=== PATIENT | female | born 1950 | race Caucasian/White ===

== ENCOUNTER 2020-03-30 14:08 | Outpatient (CLI) | payer MEDICARE, SELFPAY ==
--- NOTE | ~2020-03-30 | US_ITS ---
EXAMINATION: US art doppler w press LE BI DATE: 03/30/2020 15:09 INDICATION: Peripheral vascular disease TECHNIQUE: Segmental pressures and plethysmographic and Doppler waveforms of the brachial and lower e xtremity arteries were obtained. COMPARISON: None. FINDINGS: Right and left brachial artery pressures of 152 mm Hg and 146 mm Hg, respectively, are concordant (no rmal difference <= 30 mmHg). The right and left high-thigh pressure indices were unable to be obtaine d due to inability to occlude the vessels (normal > 1.2). The right ankle-brachial index (AYAKA) is 0.84 (normal >= 0.9-1). The right great toe-brachial index (T BI) is 0.55 (normal >= 0.6-0.8). The right lower extremity segmental pressure gradients are increased between the right above and xcchd-gfs-bjik popliteal artery and between the sykkg-xsh-syjf popliteal artery and the right dorsalis pedis artery (normal gradients <= 20-30 mmHg between adjacent levels o n the same leg or the same levels on the two legs). Arterial waveforms are biphasic with brisk systol ic upstrokes throughout. The left AYAKA is 0.82. The left TBI is 0.58. The left lower extremity segmental pressure gradients are increased between the left above and kygfw-rwv-jjyx popliteal artery and between the qxusi-hev-fyuc popliteal artery and the left dorsalis pedis artery. Arterial waveforms . IMPRESSION: 1. Peripheral arterial occlusive disease with relatively symmetric mildly decreased bilateral ABIs an d TBIs. Reviewed, dictated and finalized at location A. IMPRESSION: 1. Peripheral arterial occlusive disease with relatively symmetric mildly decre ased bilateral ABIs and TBIs.
== END 2020-03-30 14:09 | disposition home or self-care (01) ==
PROVIDERS: PCP Emergency Medicine; Visit Provider Emergency Medicine
DX: I73.9 Peripheral vascular disease, unspecified (principal)
CPT/HCPCS: 93923

== ENCOUNTER 2021-11-10 15:03 | Outpatient (CLI) | payer MEDICARE, SELFPAY ==
--- NOTE | ~2021-11-10 | MM_ITS ---
EXAMINATION: MM screening [facility] BI w jose HISTORY: Screening TECHNIQUE: Craniocaudal and mediolateral oblique 3-D tomosynthesis images were obtained and synthetic 2-D images were generated. CAD analysis was submitted and interpreted. COMPARISON: Comparison to multiple prior studies sequentially, with oldest reviewed study dated 04/01. BREAST PARENCHYMAL COMPOSITION: There are scattered areas of fibroglandular density. FINDINGS: There is no evidence of suspicious mass, calcification, or architectural distortion to sugg est malignancy in either breast. There has been no suspicious interval change. IMPRESSION: 1. No mammographic evidence of malignancy. 2. Recommend routine screening mammography in one year. BI-RADS Category 1: Negative Reviewed, dictated and finalized at location A.
== END 2021-11-10 15:04 | disposition home or self-care (01) ==
PROVIDERS: PCP Emergency Medicine; Visit Provider Emergency Medicine
DX: Z12.31 Encounter for screening mammogram for malignant neoplasm of breast (principal)
CPT/HCPCS: 77063; 77067

== ENCOUNTER 2025-01-10 11:00 | Inpatient (IN) | payer MEDICARE, SELFPAY ==
--- NOTE | ~2025-01-10 | XR_ITS ---
Portable chest x-ray Comparison: None Clinical History: Preoperative clearance Findings: COPD pattern of the lungs present. No consolidation or pleural effusion. No pneumothorax. Cardiomediastinal silhouette is stable. Bones and soft tissues are unremarkable. Impression: COPD. Reviewed, dictated and finalized at location . Impression: COPD.
--- NOTE | ~2025-01-10 | CT_ITS ---
CT abdomen pelvis wo/w con Ordering provider: Monisha Chowdhury APRN History: 74 years Female with . GI Bleed . Comparison: None. Technique: CT abdomen and pelvis with IV and without oral contrast. Automated exposure control and it erative reconstruction technique were employed. The dose-length product was 396.96 mGy-cm. 100 mL Omn ipaque 350 was given IV. Findings: VISUALIZED LOWER CHEST: 7 mm nodule is seen in the right lower lobe. Underlying emphysematous changes are noted. UPPER ABDOMINAL ORGANS: Liver: Tiny cyst seen in the right lower lobe. Gallbladder: Gallbladder is not demonstrated. Spleen: Small hypodensity seen in the anterior lateral spleen which may indicate a cyst. Stomach/duodenum: Normal. Pancreas: Normal. Adrenals: Slightly prominent left adrenal gland. Kidneys: Tiny cyst in the left kidney midpole. Minimal fullness of the left renal pelvis with no defi nite stones. Mild hydronephrotic changes seen also in the right kidney with no definite stones. Tiny cyst is seen in the right kidney lower pole. PELVIC ORGANS: The bladder shows thickened wall with possible cystitis. Diverticulum is seen on the l eft side which measures 4.2 x 2.2 cm. BOWEL AND MESENTERY: Colon: No evidence of diverticulitis. Fecal material is loaded in the colon. No evidence of appendici tis. No evidence of acute hemorrhage is seen.. Small Bowel: Fluid is seen in the small bowel loops . Clinical correlation advised. No obstruction. Peritoneum/mesentery: No free air or free fluid. No mesenteric lymphadenopathy. RETROPERITONEUM: Severe atheromatous disease of the abdominal aorta. No retroperitoneal lymphadenop athy. MUSCULOSKELETAL: Superficial soft tissues: The superficial soft tissues are normal. Bones: Age appropriate degenerative changes of the spine. Levoscoliosis. IMPRESSION: 1. No evidence of appendicitis, diverticulitis or intestinal obstruction. 2. No definite active bleeding seen in the small or large bowel. 3. Bilateral hydronephrotic changes with no definite stones seen in the ureters. 4. Slightly thickened wall of the urinary bladder suggestive of cystitis with diverticulum seen in t he left side. Further evaluation advised. 5. Constipation. Reviewed, dictated and finalized at location A. IMPRESSION: 1. No evidence of appendicitis, diverticulitis or intestinal obstruction. 2. No definite active bleeding seen in the small or large bowel. 3. Bilateral hydronephrotic changes with no definite stones seen in the ureter s. 4. Slightly thickened wall of the urinary bladder suggestive of cystitis with diverticulum seen in the left side. Further evaluation advised. 5. Constipation.
[2025-01-10 11:01] VITALS: BP 147/68; PULSE 86; RESP 16; TEMP 36.6; O2SAT 98
[2025-01-10 12:00] LABS: Hematocrit 31.7 % (37.0-47.0); Hemoglobin 10.0 g/dL (12.0-15.0); Immature Granulocyte Percent A 0.4 % (0-0.5); Lymphocytes Absolute Auto 1.44 K/mm3 (0.9-3.2); Mean Corpuscular HGB Conc 31.5 g/dl (32-36); Mean Corpuscular Hemoglobin 30.9 pg (26-34); Mean Corpuscular Volume 97.8 fl (80-100); Nucleated Red Blood Cells Absolute Auto 0.000 K/mm3 (0.0-0.012); Nucleated Red Blood Cells Perc 0.0 % (0.0-0.2); Platelet Count Result 337 k/mm3 (150-375); Red Blood Count 3.24 M/mm3 (4.2-5.4); White Blood Count 10.9 K/mm3 (4.5-10.0)
[2025-01-10 12:11] LABS: INR 1.0; Partial Thromboplastin Time 26.8 Seconds (22.3-36.8); Prothrombin Time 13.3 Seconds (11.1-14.7)
[2025-01-10 12:15] LABS: Alanine Aminotransferase 16 U/L (6-35); Albumin Level 3.7 g/dL (3.5-5.1); Alkaline Phosphatase 74 U/L (38-126); Anion Gap 8 mmol/L (4-12); Aspartate Amino Transferase 28 U/L (14-36); Bilirubin,Total 0.5 mg/dL (0.2-1.3); Blood Urea Nitrogen 12 mg/dL (7-17); Calcium 9.7 mg/dL (8.4-10.2); Carbon Dioxide 29 mmol/L (22-30); Chloride 97 mmol/L (98-107); Estimated CRCL calculation 41 ml/min; Estimated Glomerular Filt Rate > 60; Glucose 129 mg/dL (65-110); Potassium 3.3 mmol/L (3.4-5.0); Sodium 134 mmol/L (137-145); Total Protein 7.9 g/dL (6.3-8.2)
--- NOTE | 2025-01-10 13:00 | ECG_ITS ---
Test Date: 2025-01-10 13:50:07 Measurements Intervals [place] Rate: 76 P: 81 PA: 112 QRS: 75 QRSD: 100 T: 65 QT: 325 QTc: 366 Interpretive Statements SINUS RHYTHM WITH SHORT PA INTERVAL NONSPECIFIC ST & T-WAVE ABNORMALITY No previous ECG available for comparison Electronically Signed On 01-11-2025 15:48:28 CDT by Dave Murphy M.D.
[2025-01-10 13:09] VITALS: BP 121/61
--- NOTE | 2025-01-10 13:11 | ED_ITS ---
HPI - General Adult General Chief complaint: GI Bleed Stated complaint: bright red blood with bowel movement Time Seen by Provider: 01/10/25 12:18 History of Present Illness HPI narrative: This is a 74-year-old female presenting ED with chief complaint of bright red blood per rectum. Patient says she has been constipated for the last several days. She took a laxative last night but then almost immediately started having bloody red diarrhea that filled the entire bowl. She then had a bloody bowel movement every hour for the rest night which she said started to transition from or bloody to more mixed with blood in stool. She did get lightheaded during the night. She does not have any chest pain difficulty breathing abdominal pain or urinary symptoms. She does not use anticoagulation. Related Data Allergies Allergy/AdvReac Type Severity Reaction Status Date / Time amlodipine Allergy Unknown Unknown Verified 01/10/25 11:48 [facility] Past Medical History Medical History Dizziness Essential (primary) hypertension Low back pain without sciatica Positive colorectal cancer screening using Cologuard test Vitamin D deficiency disease Post-menopausal Abnormal deposits of lipid Family History Family History Father Diabetes mellitus, Onset Age: 90 Mother Family history of lung cancer, Onset Age: 84 Social History Social History Smoking status: Never smoker Alcohol intake: never Substance use: never Do You Feel Safe in your Home?: Yes Lack of Transportation: No Lack of Food: Never True Current Housing: I Have Housing Concerned About Future Housing: No Difficulty Paying Gas/Electric Bills: No Difficulty Paying for Meds: No Currently Unemployed: No Education: High School Diploma/GED Difficulty w/ Childcare or Family Care: No Exam 2 Narrative: APPEARANCE: No apparent distress. Head: atraumatic. EYES: EOMI, NOSE: Atraumatic NECK: Trachea midline RESPIRATORY: No increased rate of breathing, CTAB CARDIOVASCULAR: RRR, ABDOMINAL: Non-distended, soft nontender MUSCULOSKELETAl: No obvious deformities NEURO: Alert. Moving 4/4 extremities SKIN:: Warm, dry. Normal color PSYCHIATRIC: Normal affect Course Vital Signs Vital signs: Vital Signs Temperature 97.9 F 01/10/25 11:01 Pulse Rate 86 01/10/25 11:01 Respiratory Rate 16 01/10/25 11:01 Blood Pressure 147/68 H 01/10/25 11:01 Pulse Oximetry 98 01/10/25 11:01 Oxygen Delivery Room Air 01/10/25 11:01 Temperature 97.9 F 01/10/25 11:01 Pulse Rate 86 01/10/25 11:01 Respiratory Rate 16 01/10/25 11:01 Blood Pressure 147/68 H 01/10/25 11:01 Pulse Oximetry 98 01/10/25 11:01 Oxygen Delivery Room Air 01/10/25 11:01 Medical Decision Making MDM Narrative Medical decision making narrative: -Course: 74-year-old female presenting with bright red blood per rectum. Hemoglobin is 10. No previous records in our system to establish a baseline. Abdominal exam is benign and vital signs are stable. She does have bright red blood on digital rectal exam. Patient has been typed and screened. She will be admitted hospital for serial hemoglobins and GI evaluation. [place] Score for Safe Discharge After Lower GI Bleed from [email or web address] on 01/10/2025 All calculations should be rechecked by clinician prior to use RESULT SUMMARY: 19 points [place] Score () 50-62 % Probability of safe discharge (absence of rebleeding, blood transfusion, therapeutic intervention, 28 day readmission, or ). Discharge NOT recommended. Consider admission with further workup and resuscitation as necessary. INPUTS: Age, years ?> 2 = >=0 Sex ?> 0 = Female Previous lower GI bleeding admission ?> 0 = No JOSE findings ?> 1 = Blood Heart rate, bpm ?> 1 = 70-89 Systolic blood pressure, mmHg ?> 2 = 130-159 Hemoglobin, g/L (g/dL) ?> 13 = 90-109 (9-10.9) -DDX includes but is not limited to: Diverticular, internal hemorrhoids -Co-morbidities complicating care: Hypertension Vital Signs Vital Signs: Vital Signs Temperature 97.9 F 01/10/25 11:01 Pulse Rate 86 01/10/25 11:01 Respiratory Rate 16 01/10/25 11:01 Blood Pressure 147/68 H 01/10/25 11:01 Pulse Oximetry 98 01/10/25 11:01 Oxygen Delivery Room Air 01/10/25 11:01 Temperature 97.9 F 01/10/25 11:01 Pulse Rate 86 01/10/25 11:01 Respiratory Rate 16 01/10/25 11:01 Blood Pressure 147/68 H 01/10/25 11:01 Pulse Oximetry 98 01/10/25 11:01 Oxygen Delivery Room Air 01/10/25 11:01 Lab Data 01/10/25 11:54 01/10/25 11:54 Labs: Lab Results 01/10/25 Range/Units 11:54 WBC 10.9 H (4.5-10.0) K/mm3 RBC 3.24 L (4.2-5.4) M/mm3 Hgb 10.0 L (12.0-15.0) g/dL Hct 31.7 L (37.0-47.0) % MCV 97.8 (80-100) fl MCH 30.9 (26-34) pg MCHC 31.5 L (32-36) g/dl RDW 14.6 H (11.5-14.5) % Plt Count 337 (150-375) k/mm3 MPV 9.2 (7.4-10.4) fl Immature Gran % (Auto) 0.4 (0-0.5) % Neut % (Auto) 77.5 H (45.5-73.1) % Lymph % (Auto) 13.2 L (18.3-44.2) % [place] % (Auto) 7.6 (2.6-8.5) % Eos % (Auto) 0.4 (0-4.4) % Baso % (Auto) 0.9 (0.2-1.2) % Lymph # (Auto) 1.44 (0.9-3.2) K/mm3 [place] # (Auto) 0.8 H (0.1-0.6) K/mm3 Eos # (Auto) 0.0 (0-0.3) K/mm3 Baso # (Auto) 0.1 (0.0-0.1) K/mm3 Abs Immat Gran (auto) 0.04 H (0.00-0.031) K/mm3 Absolute Neuts (auto) 8.4 H (1.3-6.7) K/mm3 Absolute Nucleated RBC 0.000 (0.0-0.012) K/mm3 Nucleated RBC % 0.0 (0.0-0.2) % PT 13.3 (11.1-14.7) Seconds INR 1.0 APTT 26.8 (22.3-36.8) Seconds Sodium 134 L (137-145) mmol/L Potassium 3.3 L (3.4-5.0) mmol/L Chloride 97 L (98-107) mmol/L Carbon Dioxide 29 (22-30) mmol/L Anion Gap 8 (4-12) mmol/L BUN 12 (7-17) mg/dL Creatinine 0.90 (0.7-1.0) mg/dL Estim Creat Clear Calc 41 ml/min Estimated GFR > 60 (59 - ) Glucose 129 H (65-110) mg/dL Calcium 9.7 (8.4-10.2) mg/dL Total Bilirubin 0.5 (0.2-1.3) mg/dL AST 28 (14-36) U/L ALT 16 (6-35) U/L Alkaline Phosphatase 74 (38-126) U/L Total Protein 7.9 (6.3-8.2) g/dL Albumin 3.7 (3.5-5.1) g/dL Discharge Plan Discharge Clinical Impression: GI bleed Patient Disposition: Still a Patient Condition: Stable Patient Language: Com[place]an Prescriptions: No Action losartan 100 mg tablet 100 mg PO DAILY Qty: 90 2RF Rx Instructions: take 1 tablet by mouth every day hydrochlorothiazide 25 mg tablet See Rx Instructions .ROUTE .COMPLEX Qty: 90 3RF Dose Instruction: TAKE 1 TABLET BY MOUTH DAILY Rx Instructions: TAKE 1 TABLET BY MOUTH DAILY losartan 100 mg tablet See Rx Instructions .ROUTE .COMPLEX Qty: 90 2RF Dose Instruction: TAKE 1 TABLET BY MOUTH DAILY Rx Instructions: TAKE 1 TABLET BY MOUTH DAILY Follow-up/Referrals: Ashutosh Banuelos, [Primary Care Provider] -
--- NOTE | 2025-01-10 13:50 | P.HP_ITS ---
H&P: HPI History of Present Illness Date/Time: 01/10/25 13:50 Chief Complaint: Rectal bleeding Narrative: 74-year-old female with a limited PMHx: she reports taking no daily medications at this time. Presented to the emergency room with complaints of blood in her stool which he 1st noticed last night around midnight. The patient reports that her blood was bright red in color, no pain associated with it, no nausea or vomiting as well. She is unsure of her last colonoscopy but did report she remained recalled having polyps removed, but she has never had a diagnosis of hemorrhoids in the past. ED Work-up reveals: Stable vitals b/p: 147/68, SpO2 98%, p: rate 86, RR: 16, hgb 10.2 upon arrival, recheck reveals 9.2, mild hyponatremia at 134, hypokalemia 3.3, patient A&O x3 spouse is by the bedside, patient it agrees to be admitted for ongoing monitoring of GI bleed consultation to GI. [facility] Past Medical History Medical History Dizziness Essential (primary) hypertension Low back pain without sciatica Positive colorectal cancer screening using Cologuard test Vitamin D deficiency disease Post-menopausal Abnormal deposits of lipid Family History Family History Father Diabetes mellitus, Onset Age: 90 Mother Family history of lung cancer, Onset Age: 84 Social History Social History Smoking status: Never smoker Alcohol intake: never Substance use: never Do You Feel Safe in your Home?: Yes Lack of Transportation: No Lack of Food: Never True Current Housing: I Have Housing Concerned About Future Housing: No Difficulty Paying Gas/Electric Bills: No Difficulty Paying for Meds: No Currently Unemployed: No Education: High School Diploma/GED Difficulty w/ Childcare or Family Care: No Meds Home Medications and Allergies Home Medications ?Medication ?Instructions ?Recorded ?Confirmed ?Type hydrochlorothiazide 25 mg tablet See Rx Instructions .Route 09/23/23 10/22/23 Rx .COMPLEX #90 tabs losartan 100 mg tablet See Rx Instructions .Route 11/12/23 Rx .COMPLEX #90 tabs Allergies Allergy/AdvReac Type Severity Reaction Status Date / Time amlodipine AdvReac Unknown Dizzy Verified 01/10/25 15:49 Vital Signs Vital Signs - 24 hr 01/10/25 11:01 Temperature 97.9 F Pulse Rate 86 Respiratory Rate 16 Blood Pressure 147/68 H Pulse Oximetry 98 Oxygen Delivery Room Air Exam Narrative: APPEARANCE: No apparent distress spouse by the bedside Head: atraumatic. EYES: EOMI, NOSE: Atraumatic NECK: Trachea midline RESPIRATORY: No increased rate of breathing, CTAB CARDIOVASCULAR: RRR, ABDOMINAL: Non-distended, soft nontender MUSCULOSKELETAl: No obvious deformities NEURO: Alert. Moving 4/4 extremities SKIN:: Warm, dry. Normal color PSYCHIATRIC: Normal affect H&P: Results Labs Labs: Short CBC 01/10/25 Range/Units 11:54 WBC 10.9 H (4.5-10.0) K/mm3 Hgb 10.0 L (12.0-15.0) g/dL Hct 31.7 L (37.0-47.0) % Plt Count 337 (150-375) k/mm3 BMP 01/10/25 11:54 Sodium 134 L Potassium 3.3 L Chloride 97 L Carbon Dioxide 29 BUN 12 Creatinine 0.90 Glucose 129 H Calcium 9.7 Liver Function 01/10/25 Range/Units 11:54 Total Bilirubin 0.5 (0.2-1.3) mg/dL AST 28 (14-36) U/L ALT 16 (6-35) U/L Alkaline Phosphatase 74 (38-126) U/L Albumin 3.7 (3.5-5.1) g/dL Pulse Oximetry SpO2 results: 98% Attestation: I personally reviewed and interpreted this pulse oximetry as follows: ECG ECG completion date: 01/10/25 Prior ECG tracings: not available for review Interpretation: Rate 76 [place] 112 QRSd 100 QT 325 QTc 366 --[place]-- P 81 QRS 75 T 65 SINUS RHYTHM WITH SHORT OH INTERVAL NONSPECIFIC ST & T-WAVE ABNORMALITY No previous ECG available for comparison Imaging Chest x-ray: Radiologist's impression: Findings: COPD pattern of the lungs present. No consolidation or pleural effusion. No pneumothorax. Cardiomediastinal silhouette is stable. Bones and soft tissues are unremarkable. Impression: COPD. Assessment and Plan Assessment and plan (1) GI bleed: Code(s): K92.2 - Gastrointestinal hemorrhage, unspecified Status: Acute Assessment and Plan: type and screen -Continue telemetry monitoring -Monitor H&H q.6 hours x3 - consult to GI from the ED - continue LR 75 mL/hr IV - abdominal CT report pending (2) Hypokalemia: Code(s): E87.6 - Hypokalemia Status: Acute Assessment and Plan: -continue to monitor CMP/CBC - K+ 3.3 - K+ chloride 40 mEq p.o. given in the ED (3) Leukocytosis: Code(s): D72.829 - Elevated white blood cell count, unspecified Status: Acute Plan Continue home medications: denies any home medication use VTE Prophylaxis: SCDs DIET: in p.o. after midnight Anticipated hospital stay: > 2 days Code Status: full code Hospitalist MIPS Advance Care Plan I have confirmed that the patient's Advanced Care Plan is present, code status i s documented, or surrogate decision maker is listed in patient medical record.: Yes Medication Reconciliation I have utilized all available resources to obtain, update and review the patients current medications (includes all prescriptions, OTC, herbals, cannabis, and nutritional supplements).: Yes
[2025-01-10 14:10] VITALS: BP 124/68; PULSE 86; RESP 14; O2SAT 98
[2025-01-10] MEDS: POTASSIUM CHLORIDE 20 MEQ PACKET (FOR LIQUID) 40 MEQ PO (14:12)
[2025-01-10] MEDS: SODIUM CHLORIDE 0.9% IV 1,000 ML 999 ML IV CONT (14:12)
[2025-01-10 14:13] VITALS: BP 157/67; PULSE 76; RESP 16; TEMP 36.7; O2SAT 98
[2025-01-10 14:21] LABS: Hematocrit 29.1 % (37.0-47.0); Hemoglobin 9.2 g/dL (12.0-15.0)
[2025-01-10 15:00] VITALS: BMI 16.9
--- NOTE | 2025-01-10 15:31 | ADMGEN ---
This patient, Michelle Mcconnell, was admitted to [facility] Surg Room 332-01. Patient/family oriented to hospital policies and general routines including ID bracelet, bed and alarms, visiting hours, pain management, procedures, bathroom and other care routines, personal items, smoking policy, room service/diet, and visiting hours. Information on how to activate the Rapid Response Team has been discussed. Patient/Family are encouraged to report perceived risks to care and to ask questions if they do not understand what they are told or what they should do.
[2025-01-10] MEDS: LACTATED RINGERS 1,000 ML 75 ML IV CONT (17:47)
[2025-01-10 20:00] VITALS: BP 134/67; PULSE 89; RESP 18; TEMP 36.1; O2SAT 95
[2025-01-10 21:27] LABS: Hematocrit 27.2 % (37.0-47.0); Hemoglobin 8.5 g/dL (12.0-15.0)
[2025-01-10 21:49] VITALS: O2SAT 90
[2025-01-11] VITALS (11 sets, daily range): BP systolic 118–155; BP diastolic 57–80; PULSE 72–95; RESP 14–18; TEMP 36–37.1; O2SAT 91–100; BMI 17.3
[2025-01-11 02:18] LABS: Hematocrit 23.7 % (37.0-47.0); Hemoglobin 7.5 g/dL (12.0-15.0)
[2025-01-11] MEDS: SODIUM CHLORIDE 0.9% IV 250 ML 30 ML IV CONT (03:50)
[2025-01-11] MEDS: TUBING, BLOOD PLUM PUMP TUBING 1 EACH XX (04:05)
[2025-01-11 08:03] LABS: Hematocrit 27.9 % (37.0-47.0); Hemoglobin 8.9 g/dL (12.0-15.0); Immature Granulocyte Percent A 0.5 % (0-0.5); Lymphocytes Absolute Auto 1.31 K/mm3 (0.9-3.2); Mean Corpuscular HGB Conc 31.9 g/dl (32-36); Mean Corpuscular Hemoglobin 29.9 pg (26-34); Mean Corpuscular Volume 93.6 fl (80-100); Nucleated Red Blood Cells Absolute Auto 0.000 K/mm3 (0.0-0.012); Nucleated Red Blood Cells Perc 0.0 % (0.0-0.2); Platelet Count Result 255 k/mm3 (150-375); Red Blood Count 2.98 M/mm3 (4.2-5.4); White Blood Count 14.9 K/mm3 (4.5-10.0)
--- NOTE | 2025-01-11 08:32 | P.CONGI_ITS ---
Assessment and Plan Assessment and plan (1) GI bleed: Qualifiers: GI bleed type/associated pathology: anorectal hemorrhage Qualified Code(s): K62.5 - Hemorrhage of anus and rectum Code(s): K92.2 - Gastrointestinal hemorrhage, unspecified Status: Acute (2) ABLA (acute blood loss anemia): Code(s): D62 - Acute posthemorrhagic anemia Status: Acute (3) Colon polyps: Qualifiers: Colon polyp type: adenomatous Colon location: ascending Qualified Code(s): D12.2 - Benign neoplasm of ascending colon Code(s): K63.5 - Polyp of colon Status: Acute (4) Constipation: Qualifiers: Constipation type: chronic idiopathic constipation Qualified Code(s): K 59.04 - Chronic idiopathic constipation Code(s): K59.00 - Constipation, unspecified Status: Acute Plan 1. Lower GI bleeding/constipation/Anemia/personal history of colon polyps: Last colonoscopy 01/22/2019 which time she had multiple colon polyps removed and was advised at that time to have a repeat colonoscopy in 2 years which was never completed. Pathology results were not available. She had a positive Cologuard in 2019 prior to her colonoscopy. Patient states that since Saturday night she has been having bright red blood per rectum. First episode was a large amount, denies any rectal bleeding since admission. Prior to hospitalization the patient was having a bowel movement every 2-3 days with the use of Dulcolax and prunes but she has never been on a daily prescription medication for her constipation. She has had multiple small incomplete bowel movements since admission. DDX: Hemorrhoid versus polyp versus AVM versus neoplasm * Bowel prep to start today * Colonoscopy tomorrow * Clear liquid diet today * Keep patient NPO after midnight * Continue to monitor H&H and transfuse as needed to keep HGB > 7 * patient will need to start a bowel regimen, which we can further discuss at her follow up office visit Thank you very much for allowing me to share in the care of this very nice patient. This report may have been done utilizing a voice recognition system. Attempts have been made to correct errors. However, there may be uncorrected grammatical, spelling, and recognition errors present. GI Consult Note Consult date/time: 01/11/25 08:32 Reason for consult: GI bleed HPI: Michelle Mcconnell is a 74 year old female with PMSH of hypertension, personal history of colon polyps, and sciatica. She presented to the emergency room yesterday with complaints of bright red blood per rectum and constipation. GI has been consulted for GI bleed. Patient states that since Saturday night she has been having bright red blood per rectum following bowel movements. First episode she states was a large amount of blood. She has had small bowel movements since admission but does not feel like she is completely evacuating, no bleeding since admission. Prior to Saturday she was having a bowel movement every 2-3 days with the use of prunes and Dulcolax. She denies any abdominal pain, nausea, vomiting, bloating, odynophagia, dysphagia, reflux, regurgitation, early satiety, appetite or weight loss, diarrhea or melena. She denies any NSAID, aspirin, or anticoagulant use prior to admission patient quit smoking in 2007 denies any alcohol or marijuana use. Family history negative for CRC or IBD. ENDOSCOPY HISTORY: EGD: No prior EGD Hx COLONOSCOPY: 01/22/[address] Gutierrez for colon polyps Findings: Cecum, an abnormality was noted. Three clips remaining and no residual polyp At the hepatic flexure, 3 sessile polyps, ranging in size from 4 mm to 15 mm seen. The polyps were completely excised and retrieved In the rectum no abnormalities were seen From distal sigmoid colon to proximal sigmoid colon, multiple medium diverticula were present Two year repeat colonoscopy recommended Bx Results: No pathology available COLONOSCOPY: Performed by Dr. Gutierrez for positive Cologuard Findings: Cecum polyp 15 mm removed and 3 clips placed The proximal ascending colon polyps x2 6 mm to 40 mm Diverticulosis Bx Results: No pathology available LABS AND STOOL STUDIES: Labs 01/11/2025: Sodium 136, potassium 4.0, BUN 8, creatinine 0.73, GFR >60, calcium 9.3 WBC 15, Hgb 9, Hct 28, MCV 94, platelets 255 Total bilirubin 0.8, AST 23, ALT 9, Alkaline Phos 58, albumin 3.0 Labs 01/10/2025: Sodium 134, potassium 3.3, BUN 12, creatinine 0.90, GFR >60, calcium 9.7 WBC 11, Hgb 10, Hct 32, MCV 98, platelets 337, INR 1.0 Total bilirubin 0.5, AST 28, ALT 16, Alkaline Phos 74, albumin 3.7 IMAGING: CT abd/pelvis w/ and w/o contrast 01/10/2025: IMPRESSION: 1. No evidence of appendicitis, diverticulitis or intestinal obstruction. 2. No definite active bleeding seen in the small or large bowel. 3. Bilateral hydronephrotic changes with no definite stones seen in the ureters. 4. Slightly thickened wall of the urinary bladder suggestive of cystitis with diverticulum seen in the left side. Further evaluation advised. 5. Constipation. Review of Systems 2 Constitutional: Constitutional: Reports as per HPI ENT: Reports as per HPI Cardiovascular: Cardiovascular: Reports as per HPI, Denies chest pain and Denies dyspnea Respiratory: Respiratory: Denies cough and Denies dyspnea Gastrointestinal: Gastrointestinal: Reports as per HPI Musculoskeletal: Musculoskeletal: Reports as per HPI Integumentary/Breasts: Skin/Breast: Reports as per HPI Psychiatric: Psychiatric: Reports as per HPI Endocrine: Endocrine: Reports no additional endocrine complaints Hematologic/Lymphatic: Hematologic/Lymphatic: Reports no additional hematologic/lymphatic complaints [facility] Past Medical History Medical History Dizziness Essential (primary) hypertension Low back pain without sciatica Positive colorectal cancer screening using Cologuard test Vitamin D deficiency disease Post-menopausal Abnormal deposits of lipid Family History Family History Father Diabetes mellitus, Onset Age: 90 Mother Family history of lung cancer, Onset Age: 84 Social History Social History Smoking packs per day: 1 Smoking cigarettes per day: 20.0 Years smoked: 30 Smoking pack-years: 30.00 Smoking status: Former smoker Tobacco type: cigarettes Smoking end date: 07/01/07 Alcohol intake: former Substance use: never Substance use type: does not use Do You Feel Safe in your Home?: Yes Lack of Transportation: No Lack of Food: Never True Current Housing: I Have Housing Concerned About Future Housing: No Difficulty Paying Gas/Electric Bills: No Difficulty Paying for Meds: No Currently Unemployed: No Education: Decline to Answer Difficulty w/ Childcare or Family Care: No Spiritual care concerns: No Meds Home Medications and Allergies Home Medications ?Medication ?Instructions ?Recorded ?Confirmed ?Type hydrochlorothiazide 25 mg tablet See Rx Instructions .Route 09/23/23 01/10/25 Rx .COMPLEX #90 tabs losartan 100 mg tablet See Rx Instructions .Route 11/12/23 01/10/25 Rx .COMPLEX #90 tabs Allergies Allergy/AdvReac Type Severity Reaction Status Date / Time amlodipine AdvReac Unknown Dizzy Verified 01/10/25 15:49 Vital Signs Vital Signs - 24 hr 01/10/25 11:01 01/10/25 13:09 01/10/25 14:10 Temperature 97.9 F Pulse Rate 86 86 Respiratory Rate 16 14 Blood Pressure 147/68 H 121/61 124/68 Pulse Oximetry 98 98 Oxygen Delivery Room Air Fraction of Inspired Oxygen 01/10/25 14:13 01/10/25 20:00 01/10/25 20:00 Temperature 98.1 F 97.0 F L Pulse Rate 76 89 Respiratory Rate 16 18 Blood Pressure 157/67 H 134/67 Pulse Oximetry 98 95 Oxygen Delivery Room Air Fraction of Inspired Oxygen 01/10/25 21:49 01/11/25 00:00 01/11/25 04:00 Temperature 98.0 F 97.2 F L Pulse Rate 90 85 Respiratory Rate 18 18 Blood Pressure 144/62 H 125/59 L Pulse Oximetry 90 94 94 Oxygen Delivery Room Air Fraction of Inspired Oxygen 21 01/11/25 04:08 01/11/25 04:20 01/11/25 05:20 Temperature 97.2 F L 96.8 F L 97.1 F L Pulse Rate 85 88 89 Respiratory Rate 18 16 16 Blood Pressure 125/59 L 129/61 148/69 H Pulse Oximetry 94 91 100 Oxygen Delivery Fraction of Inspired Oxygen 01/11/25 06:20 01/11/25 06:55 01/11/25 08:00 Temperature 97.2 F L 97.4 F L 97.5 F L Pulse Rate 74 72 93 Respiratory Rate 16 16 14 Blood Pressure 124/57 L 118/60 155/80 H Pulse Oximetry 100 99 97 Oxygen Delivery Fraction of Inspired Oxygen Exam 2 Const: General: cooperative, healthy appearing, comfortable, no acute distress and well developed Orientation/consciousness: oriented to person, oriented to place, oriented to time and patient oriented x3 HENMT: Head: normal to inspection, normocephalic and atraumatic Mouth: Yes Normal oral and palatal mucosa present and Yes moist mucous membranes Eyes: General: appearance normal, both eyes and all related structures C onjunctivae: conjunctivae normal Sclera: sclerae normal Pupils: Equal, round and reactive pupils present Neck: Neck: normal visual inspection Chest: Chest palpation & inspection: normal inspection of the chest Resp: Effort & Inspection: normal respiratory effort and able to speak in complete sentences Auscultation: clear to auscultation bilaterally Cardio: Jugular venous distension: no JVD Rate: regular rate Rhythm: r egular rhythm Heart sounds: S1 normal heart sound present and S2 normal heart sound present GI: Inspection: normal to inspection GI Palp: Yes Soft to palpation and Yes No hepatosplenomegaly present Auscultation: normal bowel sounds Rectal Exam: deferred Skin: General skin exam: normal color and no rashes or lesions noted Neuro: General: oriented to person, oriented to place, oriented to time and patient oriented x3 Cranial nerves: Yes Equal, round and reactive pupils present Speech: normal speech Extrem: General: normal to inspection and no clubbing, cyanosis or edema Psych: Appearance: grossly normal and well kempt Affect: normal affect Results Labs 01/11/25 07:05 01/11/25 07:05 Labs: Short CBC 01/10/25 01/10/25 01/10/25 Range/Units 11:54 14:14 20:58 WBC 10.9 H (4.5-10.0) K/mm3 Hgb 10.0 L 9.2 L 8.5 L (12.0-15.0) g/dL Hct 31.7 L 29.1 L 27.2 L (37.0-47.0) % Plt Count 337 (150-375) k/mm3 01/11/25 01/11/25 Range/Units 02:14 07:05 WBC 14.9 H (4.5-10.0) K/mm3 Hgb 7.5 L 8.9 L (12.0-15.0) g/dL Hct 23.7 L 27.9 L (37.0-47.0) % Plt Count 255 (150-375) k/mm3 [facility] 01/10/25 11:54 Sodium 134 L Potassium 3.3 L Chloride 97 L Carbon Dioxide 29 BUN 12 Creatinine 0.90 Glucose 129 H Calcium 9.7 Liver Function 01/10/25 Range/Units 11:54 Total Bilirubin 0.5 (0.2-1.3) mg/dL AST 28 (14-36) U/L ALT 16 (6-35) U/L Alkaline Phosphatase 74 (38-126) U/L Albumin 3.7 (3.5-5.1) g/dL
[2025-01-11 09:00] LABS: Alanine Aminotransferase 9 U/L (6-35); Albumin Level 3.0 g/dL (3.5-5.1); Alkaline Phosphatase 58 U/L (38-126); Anion Gap 5 mmol/L (4-12); Aspartate Amino Transferase 23 U/L (14-36); Bilirubin,Total 0.8 mg/dL (0.2-1.3); Blood Urea Nitrogen 8 mg/dL (7-17); Calcium 9.3 mg/dL (8.4-10.2); Carbon Dioxide 28 mmol/L (22-30); Chloride 103 mmol/L (98-107); Estimated CRCL calculation 45 ml/min; Estimated Glomerular Filt Rate > 60; Glucose 102 mg/dL (65-110); Potassium 4.0 mmol/L (3.4-5.0); Sodium 136 mmol/L (137-145); Total Protein 6.2 g/dL (6.3-8.2)
--- NOTE | 2025-01-11 14:48 | PM.IMPN ---
Progress Note: A&P Assessment and Plan (1) GI bleed: Qualifiers: GI bleed type/associated pathology: anorectal hemorrhage Qualified Code(s): K62.5 - Hemorrhage of anus and rectum Code(s): K92.2 - Gastrointestinal hemorrhage, unspecified Status: Acute Assessment and Plan: -Type and screen -Continue telemetry monitoring -Monitor H&H q.6 hours x6 -Consult to GI, plan on colonoscopy tomorrow. -Continue LR 75 mL/hr IV -Abdominal CT showing no definite active bleed in small intestine or bowel, constipation. (2) Hypokalemia: Code(s): E87.6 - Hypokalemia Status: Acute Assessment and Plan: -continue to monitor CMP/CBC - K+ 3.3 -K+ chloride 40 mEq p.o. given in the ED -RESOLVED (3) Leukocytosis: Code(s): D72.829 - Elevated white blood cell count, unspecified Status: Acute Assessment and Plan: WBC 10.9 --> 14.9 -Could be reactive -Monitor CBC Plan Continue home medications: denies any home medication use VTE Prophylaxis: SCDs DIET: in p.o. after midnight Anticipated hospital stay: > 2 days Code Status: full code Subjective Date/time seen: 01/11/25 14:48 Interval history: Patient sitting up in bed and is pleasant. She does not have any concerns. She is still having blood in her stool. She is planning for colonoscopy tomorrow. She denies abdominal pain, nausea vomiting. No concerns at this time. Exam Narrative: GENERAL: Comfortable, no acute distress, cachectic HENMT: moist mucous membranes RESPIRATORY: clear to auscultation, no increased respiratory effort CARDIO: Regular rate and rhythm GI: soft, nontender, bowel sounds present SKIN/EXTREMITIES: no rashes, no edema, no redness or tenderness NEURO: answers questions appropriately, A&O x4 Objective Data Vital Signs Vital Signs: Vital Signs - 24 hr 01/10/25 20:00 01/10/25 20:00 01/10/25 21:49 Temperature 97.0 F L Pulse Rate 89 Respiratory Rate 18 Blood Pressure 134/67 Pulse Oximetry 95 90 Oxygen Delivery Room Air Room Air Fraction of Inspired Oxygen 21 01/11/25 00:00 01/11/25 04:00 01/11/25 04:08 Temperature 98.0 F 97.2 F L 97.2 F L Pulse Rate 90 85 85 Respiratory Rate 18 18 18 Blood Pressure 144/62 H 125/59 L 125/59 L Pulse Oximetry 94 94 94 Oxygen Delivery Fraction of Inspired Oxygen 01/11/25 04:20 01/11/25 05:20 01/11/25 06:20 Temperature 96.8 F L 97.1 F L 97.2 F L Pulse Rate 88 89 74 Respiratory Rate 16 16 16 Blood Pressure 129/61 148/69 H 124/57 L Pulse Oximetry 91 100 100 Oxygen Delivery Fraction of Inspired Oxygen 01/11/25 06:55 01/11/25 08:00 01/11/25 12:00 Temperature 97.4 F L 97.5 F L 97.5 F L Pulse Rate 72 93 81 Respiratory Rate 16 14 16 Blood Pressure 118/60 155/80 H 143/63 H Pulse Oximetry 99 97 99 Oxygen Delivery Fraction of Inspired Oxygen Intake/Output Intake/Output: Intake & Output 01/08/25 01/09/25 01/10/25 01/11/25 23:59 23:59 23:59 23:59 Intake Total 390 450 Output Total 200 Balance 390 250 Meds/Results Medications: Active Medications Generic Name Dose Route Start Last Admin Trade Name Freq PRN Reason Stop Dose Admin Acetaminophen 650 mg 01/10/25 17:07 Acetaminophen 325 Mg Tablet PO Q4H PRN Mild Pain (1-3) or Fever Bisacodyl 10 mg 01/11/25 15:00 Bisacodyl 5 Mg Tablet Ec PO 01/11/25 21:01 1500,2100 MIKE Polyethylene Glycol/Electrolytes 4,000 ml 01/11/25 16:00 Peg (High)/E-Lyte Soln 4,000 Ml Btl PO 01/11/25 16:01 ONCE ONE Radiology Results: ITS Impressions Chest X-Ray 01/10/25 13:59 Impression: COPD. Abdomen/Pelvis CT 01/10/25 15:46 IMPRESSION: 1. No evidence of appendicitis, diverticulitis or intestinal obstruction. 2. No definite active bleeding seen in the small or large bowel. 3. Bilateral hydronephrotic changes with no definite stones seen in the ureters. 4. Slightly thickened wall of the urinary bladder suggestive of cystitis with diverticulum seen in the left side. Further evaluation advised. 5. Constipation. Labs Labs: Laboratory Results - last 24 hr 01/10/25 01/10/25 01/11/25 11:54 20:58 02:14 WBC RBC Hgb 8.5 L 7.5 L Hct 27.2 L 23.7 L MCV MCH MCHC RDW Plt Count MPV Immature Gran % (Auto) Neut % (Auto) Lymph % (Auto) [place] % (Auto) Eos % (Auto) Baso % (Auto) Lymph # (Auto) [place] # (Auto) Eos # (Auto) Baso # (Auto) Abs Immat Gran (auto) Absolute Neuts (auto) Absolute Nucleated RBC Nucleated RBC % Sodium Potassium Chloride Carbon Dioxide Anion Gap BUN Creatinine Estim Creat Clear Calc Estimated GFR Glucose Calcium Total Bilirubin AST ALT Alkaline Phosphatase Total Protein Albumin Blood Type A Positive Antibody Screen Negative Crossmatch See Detail 01/11/25 07:05 WBC 14.9 H RBC 2.98 L Hgb 8.9 L Hct 27.9 L MCV 93.6 MCH 29.9 MCHC 31.9 L RDW 17.0 H Plt Count 255 MPV 9.6 Immature Gran % (Auto) 0.5 Neut % (Auto) 82.9 H Lymph % (Auto) 8.8 L [place] % (Auto) 6.6 Eos % (Auto) 0.5 Baso % (Auto) 0.7 Lymph # (Auto) 1.31 [place] # (Auto) 1.0 H Eos # (Auto) 0.1 Baso # (Auto) 0.1 Abs Immat Gran (auto) 0.07 H Absolute Neuts (auto) 12.3 H Absolute Nucleated RBC 0.000 Nucleated RBC % 0.0 Sodium 136 L Potassium 4.0 Chloride 103 Carbon Dioxide 28 Anion Gap 5 BUN 8 Creatinine 0.73 Estim Creat Clear Calc 45 Estimated GFR > 60 Glucose 102 Calcium 9.3 Total Bilirubin 0.8 AST 23 ALT 9 Alkaline Phosphatase 58 Total Protein 6.2 L Albumin 3.0 L Blood Type Antibody Screen Crossmatch
[2025-01-11] MEDS: PEG (High)/E-LYTE SOLN 4,000 ML BTL 4000 ML PO (15:35)
[2025-01-11] MEDS: BISACODYL 5 MG TABLET EC 10 MG PO ×2 (15:35→23:57)
[2025-01-11 15:39] LABS: Hematocrit 27.3 % (37.0-47.0); Hemoglobin 8.8 g/dL (12.0-15.0)
[2025-01-11 20:41] LABS: Hematocrit 28.5 % (37.0-47.0); Hemoglobin 9.2 g/dL (12.0-15.0)
[2025-01-12] VITALS (12 sets, daily range): BP systolic 86–127; BP diastolic 33–81; PULSE 71–102; RESP 16–20; TEMP 36.5–37.3; O2SAT 94–99
[2025-01-12 03:02] LABS: Hematocrit 23.4 % (37.0-47.0); Hemoglobin 7.6 g/dL (12.0-15.0)
[2025-01-12 07:50] LABS: Hematocrit 25.4 % (37.0-47.0); Hemoglobin 8.1 g/dL (12.0-15.0)
[2025-01-12 07:57] LABS: Hematocrit 25.3 % (37.0-47.0); Hemoglobin 8.1 g/dL (12.0-15.0); Immature Granulocyte Percent A 0.5 % (0-0.5); Lymphocytes Absolute Auto 1.94 K/mm3 (0.9-3.2); Mean Corpuscular HGB Conc 32.0 g/dl (32-36); Mean Corpuscular Hemoglobin 30.2 pg (26-34); Mean Corpuscular Volume 94.4 fl (80-100); Nucleated Red Blood Cells Absolute Auto 0.000 K/mm3 (0.0-0.012); Nucleated Red Blood Cells Perc 0.0 % (0.0-0.2); Platelet Count Result 309 k/mm3 (150-375); Red Blood Count 2.68 M/mm3 (4.2-5.4); White Blood Count 17.4 K/mm3 (4.5-10.0)
[2025-01-12 08:03] LABS: Alanine Aminotransferase 12 U/L (6-35); Albumin Level 3.2 g/dL (3.5-5.1); Alkaline Phosphatase 67 U/L (38-126); Anion Gap 6 mmol/L (4-12); Aspartate Amino Transferase 24 U/L (14-36); Bilirubin,Total 0.7 mg/dL (0.2-1.3); Blood Urea Nitrogen 9 mg/dL (7-17); Calcium 9.6 mg/dL (8.4-10.2); Carbon Dioxide 28 mmol/L (22-30); Chloride 100 mmol/L (98-107); Estimated CRCL calculation 40 ml/min; Estimated Glomerular Filt Rate > 60; Glucose 110 mg/dL (65-110); Potassium 4.2 mmol/L (3.4-5.0); Sodium 134 mmol/L (137-145); Total Protein 6.5 g/dL (6.3-8.2)
--- NOTE | 2025-01-12 12:29 | PM.IMPN ---
Progress Note: A&P Assessment and Plan (1) GI bleed: Qualifiers: GI bleed type/associated pathology: anorectal hemorrhage Qualified Code(s): K62.5 - Hemorrhage of anus and rectum Code(s): K92.2 - Gastrointestinal hemorrhage, unspecified Status: Acute Assessment and Plan: -Type and screen -Continue telemetry monitoring -Monitor H&H q.6 hours x6 -Continue LR 75 mL/hr IV -Abdominal CT showing no definite active bleed in small intestine or bowel, constipation. -Consult to GI colonoscopy today Diverticulosis with colonic polyps Without perforation or abscess without bleeding (2) Hypokalemia: Code(s): E87.6 - Hypokalemia Status: Acute Assessment and Plan: -continue to monitor CMP/CBC -K+ 3.3 -K+ chloride 40 mEq p.o. given in the ED -RESOLVED (3) Leukocytosis: Code(s): D72.829 - Elevated white blood cell count, unspecified Status: Acute Assessment and Plan: WBC 10.9 --> 14.9 -> 17.5 -Could be reactive -Monitor CBC Plan Continue home medications: denies any home medication use VTE Prophylaxis: SCDs DIET: in p.o. after midnight Anticipated hospital stay: > 2 days Code Status: full code Subjective Date/time seen: 01/12/25 12:29 Interval history: 74-year-old female with a limited PMHx: she reports taking no daily medications at this time. Presented to the emergency room with complaints of blood in her stool. 01/12/2025 Pt sitting in bed at time of exam. Denies any chest pain, sob, n/v or abd pain at this time. Colonoscopy performed today, shows evidence of Diverticulosis with colonic polyps but otherwise no perforation or abscess. Will begin to advance diet as tolerated and monitor H&H over next 24 hours. Exam Narrative: GENERAL: Comfortable, no acute distress, cachectic HENMT: moist mucous membranes RESPIRATORY: clear to auscultation, no increased respiratory effort CARDIO: Regular rate and rhythm GI: soft, nontender, bowel sounds present SKIN/EXTREMITIES: no rashes, no edema, no redness or tenderness NEURO: answers questions appropriately, A&O x4 Objective Data Vital Signs Vital Signs: Vital Signs - 24 hr 01/11/25 16:00 01/11/25 20:00 01/11/25 20:00 Temperature 97.0 F L 98.7 F Pulse Rate 95 88 Respiratory Rate 16 18 Blood Pressure 155/70 H 141/71 H Pulse Oximetry 93 98 Oxygen Delivery Room Air 01/11/25 20:00 01/12/25 00:00 01/12/25 00:00 Temperature 97.7 F Pulse Rate 85 93 100 Respiratory Rate 18 Blood Pressure 110/62 Pulse Oximetry 94 Oxygen Delivery 01/12/25 04:00 01/12/25 04:00 01/12/25 08:00 Temperature 98.6 F Pulse Rate 81 86 Respiratory Rate 20 Blood Pressure 124/69 Pulse Oximetry 94 Oxygen Delivery Room Air 01/12/25 08:00 01/12/25 08:00 01/12/25 10:31 Temperature 98.5 F Pulse Rate 93 102 H Respiratory Rate 16 Blood Pressure 97/53 L Pulse Oximetry 96 Oxygen Delivery Room Air Intake/Output Intake/Output: Intake & Output 01/09/25 01/10/25 01/11/25 01/12/25 23:59 23:59 23:59 23:59 Intake Total 390 650 Output Total 200 Balance 390 450 Meds/Results Medications: Active Medications Generic Name Dose Route Start Last Admin Trade Name Freq PRN Reason Stop Dose Admin Acetaminophen 650 mg 01/10/25 17:07 Acetaminophen 325 Mg Tablet PO Q4H PRN Mild Pain (1-3) or Fever Lactated Ringer's 1,000 mls @ 150 mls/hr 01/11/25 21:20 Lr - Lactated Ringers Iv IV CONT .[id number] [facility] Radiology Results: ITS Impressions Chest X-Ray 01/10/25 13:59 Impression: COPD. Abdomen/Pelvis CT 01/10/25 15:46 IMPRESSION: 1. No evidence of appendicitis, diverticulitis or intestinal obstruction. 2. No definite active bleeding seen in the small or large bowel. 3. Bilateral hydronephrotic changes with no definite stones seen in the ureters. 4. Slightly thickened wall of the urinary bladder suggestive of cystitis with diverticulum seen in the left side. Further evaluation advised. 5. Constipation. Labs Labs: Laboratory Results - last 24 hr 01/11/25 01/11/25 01/12/25 15:21 20:29 02:55 WBC RBC Hgb 8.8 L 9.2 L 7.6 L Hct 27.3 L 28.5 L 23.4 L MCV MCH MCHC RDW Plt Count MPV Immature Gran % (Auto) Neut % (Auto) Lymph % (Auto) [place] % (Auto) Eos % (Auto) Baso % (Auto) Lymph # (Auto) [place] # (Auto) Eos # (Auto) Baso # (Auto) Abs Immat Gran (auto) Absolute Neuts (auto) Absolute Nucleated RBC Nucleated RBC % Sodium Potassium Chloride Carbon Dioxide Anion Gap BUN Creatinine Estim Creat Clear Calc Estimated GFR Glucose Calcium Total Bilirubin AST ALT Alkaline Phosphatase Total Protein Albumin 01/12/25 01/12/25 01/12/25 07:39 07:39 07:39 WBC 17.4 H RBC 2.68 L Hgb 8.1 L 8.1 L Hct 25.3 L 25.4 L MCV 94.4 MCH 30.2 MCHC 32.0 RDW 17.6 H Plt Count 309 MPV 9.5 Immature Gran % (Auto) 0.5 Neut % (Auto) 80.9 H Lymph % (Auto) 11.1 L [place] % (Auto) 6.4 Eos % (Auto) 0.5 Baso % (Auto) 0.6 Lymph # (Auto) 1.94 [place] # (Auto) 1.1 H Eos # (Auto) 0.1 Baso # (Auto) 0.1 Abs Immat Gran (auto) 0.09 H Absolute Neuts (auto) 14.1 H Absolute Nucleated RBC 0.000 Nucleated RBC % 0.0 Sodium 134 L Potassium 4.2 Chloride 100 Carbon Dioxide 28 Anion Gap 6 BUN 9 Creatinine 0.82 Estim Creat Clear Calc 40 Estimated GFR > 60 Glucose 110 Calcium 9.6 Total Bilirubin 0.7 AST 24 ALT 12 Alkaline Phosphatase 67 Total Protein 6.5 Albumin 3.2 L
--- NOTE | 2025-01-12 13:24 | P.PNAN_ITS ---
Anes - Initial Pre Proc Eval Procedure: Operation Date: 01/12/25 15:15 Proposed Procedures p Diagnostic Colonoscopy - Michael Bull MD Date/Time: 01/12/25 13:24 Surgeon: Alejandro White MD Pre Op Diagnosis: gi bleed Patient Data Age: 74 Gender: F Height: 1.7 m Weight: 50.1 kg Last Vital Signs Temp 98.5 F 01/12/25 13:05 Pulse 94 01/12/25 13:05 Resp 16 01/12/25 13:05 BP 115/57 L 01/12/25 13:05 Pulse Ox 98 01/12/25 13:05 O2 Del Method Room Air 01/12/25 13:05 FiO2 21 01/10/25 21:49 Allergies Allergy/AdvReac Type Severity Reaction Status Date / Time amlodipine AdvReac Unknown Dizzy Verified 01/12/25 13:10 Home Medications ?Medication ?Instructions ?Recorded ?Confirmed ?Type hydrochlorothiazide 25 mg tablet See Rx Instructions .Route 09/23/23 01/10/25 Rx .COMPLEX #90 tabs losartan 100 mg tablet See Rx Instructions .Route 11/12/23 01/10/25 Rx .COMPLEX #90 tabs Laboratory Tests 01/11/25 01/11/25 01/12/25 15:21 20:29 02:55 WBC RBC Hgb 8.8 L g/dL 9.2 L g/dL 7.6 L g/dL (12.0-15.0) (12.0-15.0) (12.0-15.0) Hct 27.3 L % 28.5 L % 23.4 L % (37.0-47.0) (37.0-47.0) (37.0-47.0) MCV MCH MCHC RDW Plt Count MPV Immature Gran % (Auto) Neut % (Auto) Lymph % (Auto) [place] % (Auto) Eos % (Auto) Baso % (Auto) Lymph # (Auto) [place] # (Auto) Eos # (Auto) Baso # (Auto) Abs Immat Gran (auto) Absolute Neuts (auto) Absolute Nucleated RBC Nucleated RBC % Sodium Potassium Chloride Carbon Dioxide Anion Gap BUN Creatinine Estim Creat Clear Calc Estimated GFR Glucose Calcium Total Bilirubin AST ALT Alkaline Phosphatase Total Protein Albumin 01/12/25 01/12/2525 07:39 07:39 07:39 WBC 17.4 H K/mm3 (4.5-10.0) RBC 2.68 L M/mm3 (4.2-5.4) Hgb 8.1 L g/dL 8.1 L g/dL (12.0-15.0) (12.0-15.0) Hct 25.3 L % 25.4 L % (37.0-47.0) (37.0-47.0) MCV 94.4 fl (80-100) MCH 30.2 pg (26-34) MCHC 32.0 g/dl (32-36) RDW 17.6 H % (11.5-14.5) Plt Count 309 k/mm3 (150-375) MPV 9.5 fl (7.4-10.4) Immature Gran % (Auto) 0.5 % (0-0.5) Neut % (Auto) 80.9 H % (45.5-73.1) Lymph % (Auto) 11.1 L % (18.3-44.2) [place] % (Auto) 6.4 % (2.6-8.5) Eos % (Auto) 0.5 % (0-4.4) Baso % (Auto) 0.6 % (0.2-1.2) Lymph # (Auto) 1.94 K/mm3 (0.9-3.2) [place] # (Auto) 1.1 H K/mm3 (0.1-0.6) Eos # (Auto) 0.1 K/mm3 (0-0.3) Baso # (Auto) 0.1 K/mm3 (0.0-0.1) Abs Immat Gran (auto) 0.09 H K/mm3 (0.00-0.031) Absolute Neuts (auto) 14.1 H K/mm3 (1.3-6.7) Absolute Nucleated RBC 0.000 K/mm3 (0.0-0.012) Nucleated RBC % 0.0 % (0.0-0.2) Sodium 134 L mmol/L (137-145) Potassium 4.2 mmol/L (3.4-5.0) Chloride 100 mmol/L (98-107) Carbon Dioxide 28 mmol/L (22-30) Anion Gap 6 mmol/L (4-12) BUN 9 mg/dL (7-17) Creatinine 0.82 mg/dL (0.7-1.0) Estim Creat Clear Calc 40 ml/min Estimated GFR > 60 (59 - ) Glucose 110 mg/dL (65-110) Calcium 9.6 mg/dL (8.4-10.2) Total Bilirubin 0.7 mg/dL (0.2-1.3) AST 24 U/L (14-36) ALT 12 U/L (6-35) Alkaline Phosphatase 67 U/L (38-126) Total Protein 6.5 g/dL (6.3-8.2) Albumin 3.2 L g/dL (3.5-5.1) Patient hx anesthesia problems: none Family hx anesthesia problems: none Results Review: All pre-operative results and documents have been reviewed as part of the pre- operative evaluation. FOR[facility]LY [facility] Past Medical History Medical History Dizziness Essential (primary) hypertension Low back pain without sciatica Positive colorectal cancer screening using Cologuard test Vitamin D deficiency disease Post-menopausal Abnormal deposits of lipid Family History Family History Father Diabetes mellitus, Onset Age: 90 Mother Family history of lung cancer, Onset Age: 84 Social History Social History Smoking packs per day: 1 Smoking cigarettes per day: 20.0 Years smoked: 30 Smoking pack-years: 30.00 Smoking status: Former smoker Tobacco type: cigarettes Smoking end date: 07/01/07 Alcohol intake: former Substance use: never Substance use type: does not use Do You Feel Safe in your Home?: Yes Lack of Transportation: No Lack of Food: Never True Current Housing: I Have Housing Concerned About Future Housing: No Difficulty Paying Gas/Electric Bills: No Difficulty Paying for Meds: No Currently Unemployed: No Education: Decline to Answer Difficulty w/ Childcare or Family Care: No Spiritual care concerns: No Anes - Eval Final PreProcedure Day of Procedure 01/12/25 13:24 Patient weight: cachectic and thin Lungs: normal air movement Airway: Mallampati scale class II and special considerations (Upper and lower dentures. ) Neurological: alert and oriented Last oral intake: >/= 8 hours ASA classification: III Emergent: no Anesthetic plan: proceed Anesthesia type and monitoring: general GIVS and standard monitoring Results Review: All pre-operative results and documents have been reviewed as part of the pre- operative evaluation. HTN, now w anemia, s/p transfusion 1 U PRBCs. Informed Consent: The patient's anesthetic plan and its attendant risks and benefits were discussed with the patient/family/POA. Questions were solicited and answers provided to the satisfaction of the patient/family/POA.
[2025-01-12] MEDS: LACTATED RINGERS 1,000 ML 150 ML IV CONT (13:30)
--- NOTE | 2025-01-12 13:49 | S_PTH ---
PATIENT: Michelle Mcconnell LOC: [id number] U#:[id number] AGE/SX: 74/F ROOM: 332 RE01/10/[address]: Michael Chand PA-C : 1950 BED: 01 DIS: 01/13/2025 SPEC #: [id number] RECD: 01/12/25 14:24 STATUS: FARAZ REMiguelito #: [id number] GINO: 01/12/25 13:[address]: Michael Bull DEPT: [facility] Surgical RECD BY: Sanjuanita Woods ENTERED: 01/12/25 14:24 SP TYPE: Surgical OTHR DR: NICK Pratt MD David B. Yablonsky, DO Tissues: A - Colon Polypectomy Procedures: Hematoxylin and Eosin Stain Gross and Microscopic Level 4
[2025-01-12 15:04] LABS: Hematocrit 24.4 % (37.0-47.0); Hemoglobin 7.7 g/dL (12.0-15.0)
[2025-01-12 20:44] LABS: Hematocrit 21.2 % (37.0-47.0)
[2025-01-12 20:53] LABS: Hemoglobin 6.8 g/dL (12.0-15.0)
[2025-01-12] MEDS: SODIUM CHLORIDE 0.9% IV 250 ML 30 ML IV CONT (21:17)
[2025-01-13] VITALS (11 sets, daily range): BP systolic 102–142; BP diastolic 49–73; PULSE 0–105; RESP 14–18; TEMP 36.4–36.7; O2SAT 91–97
[2025-01-13] MEDS: TUBING, BLOOD PLUM PUMP TUBING 1 EACH XX (00:15)
[2025-01-13 04:49] LABS: Hematocrit 29.5 % (37.0-47.0); Hemoglobin 9.4 g/dL (12.0-15.0)
[2025-01-13 05:12] LABS: Alanine Aminotransferase 15 U/L (6-35); Albumin Level 3.2 g/dL (3.5-5.1); Alkaline Phosphatase 65 U/L (38-126); Anion Gap 8 mmol/L (4-12); Aspartate Amino Transferase 31 U/L (14-36); Bilirubin,Total 1.2 mg/dL (0.2-1.3); Blood Urea Nitrogen 15 mg/dL (7-17); Calcium 9.4 mg/dL (8.4-10.2); Carbon Dioxide 29 mmol/L (22-30); Chloride 99 mmol/L (98-107); Estimated CRCL calculation 33 ml/min; Estimated Glomerular Filt Rate 53; Glucose 100 mg/dL (65-110); Potassium 3.9 mmol/L (3.4-5.0); Sodium 136 mmol/L (137-145); Total Protein 6.8 g/dL (6.3-8.2)
--- NOTE | 2025-01-13 08:38 | PM.IMPN ---
Progress Note: A&P Assessment and Plan (1) GI bleed: Qualifiers: GI bleed type/associated pathology: anorectal hemorrhage Qualified Code(s): K62.5 - Hemorrhage of anus and rectum Code(s): K92.2 - Gastrointestinal hemorrhage, unspecified Status: Acute Assessment and Plan: -Type and screen -Continue telemetry monitoring -Monitor H&H q.6 hours x6 -Continue LR 75 mL/hr IV -Abdominal CT showing no definite active bleed in small intestine or bowel, constipation. -Consult to GI colonoscopy today Diverticulosis with colonic polyps Without perforation or abscess without bleeding (2) Hypokalemia: Code(s): E87.6 - Hypokalemia Status: Acute Assessment and Plan: -continue to monitor CMP/CBC -K+ 3.3 -K+ chloride 40 mEq p.o. given in the ED -RESOLVED (3) Leukocytosis: Code(s): D72.829 - Elevated white blood cell count, unspecified Status: Acute Assessment and Plan: WBC 10.9 --> 14.9 -> 17.5 -Could be reactive -Monitor CBC Plan Continue home medications: denies any home medication use VTE Prophylaxis: SCDs DIET: in p.o. after midnight Anticipated hospital stay: > 2 days Code Status: full code Subjective Date/time seen: 01/13/25 08:38 Interval history: 74-year-old female with a limited PMHx: she reports taking no daily medications at this time. Presented to the emergency room with complaints of blood in her stool. 01/13/2025 Pt sitting in bed at time of exam. Denies any chest pain, sob, n/v or abd pain at this time. Review of Systems Review of Systems: All systems reviewed & are unremarkable except as noted in HPI and below Exam Narrative: GENERAL: Comfortable, no acute distress, cachectic HENMT: moist mucous membranes RESPIRATORY: clear to auscultation, no increased respiratory effort CARDIO: Regular rate and rhythm GI: soft, nontender, bowel sounds present SKIN/EXTREMITIES: no rashes, no edema, no redness or tenderness NEURO: answers questions appropriately, A&O x4 Objective Data Vital Signs Vital Signs: Vital Signs - 24 hr 01/12/25 10:31 01/12/25 12:00 01/12/25 13:05 Temperature 98.5 F Pulse Rate 98 94 Respiratory Rate 16 Blood Pressure 115/57 L Pulse Oximetry 98 Oxygen Delivery Room Air Room Air 01/12/25 13:51 01/12/25 14:01 01/12/25 14:11 Temperature Pulse Rate 86 86 84 Respiratory Rate 20 19 18 Blood Pressure 86/33 L 92/74 L 92/48 L Pulse Oximetry 99 97 99 Oxygen Delivery Room Air Room Air Room Air 01/12/25 16:00 01/12/25 16:00 01/12/25 16:00 Temperature 99.0 F 98.4 F Pulse Rate 102 H 92 71 Respiratory Rate 16 16 Blood Pressure 117/81 127/57 L Pulse Oximetry 98 95 Oxygen Delivery 01/12/25 16:05 01/12/25 16:10 01/12/25 20:00 Temperature 99.2 F Pulse Rate 96 88 Respiratory Rate 20 Blood Pressure 108/57 L 124/74 100/55 L Pulse Oximetry 96 95 Oxygen Delivery 01/12/25 20:00 01/12/25 20:00 01/13/25 00:00 Temperature Pulse Rate 91 83 Respiratory Rate Blood Pressure Pulse Oximetry Oxygen Delivery Room Air 01/13/25 00:15 01/13/25 00:30 01/13/25 01:30 Temperature 97.9 F 97.6 F 98.1 F Pulse Rate 87 96 89 Respiratory Rate 16 16 16 Blood Pressure 113/54 L 122/53 L 120/63 Pulse Oximetry 93 96 95 Oxygen Delivery 01/13/25 02:30 01/13/25 03:16 01/13/25 04:00 Temperature 97.7 F 98.0 F 98.1 F Pulse Rate 87 87 80 Respiratory Rate 14 14 18 Blood Pressure 127/69 125/61 136/73 Pulse Oximetry 94 95 94 Oxygen Delivery 01/13/25 04:00 Temperature Pulse Rate 91 Respiratory Rate Blood Pressure Pulse Oximetry Oxygen Delivery Intake/Output Intake/Output: Intake & Output 01/10/25 01/11/25 01/12/25 01/13/25 23:59 23:59 23:59 23:59 Intake Total 390 650 490 550 Output Total 200 Balance 390 450 490 550 Meds/Results Medications: Active Medications Generic Name Dose Route Start Last Admin Trade Name Freq PRN Reason Stop Dose Admin Acetaminophen 650 mg 01/10/25 17:07 Acetaminophen 325 Mg Tablet PO Q4H PRN Mild Pain (1-3) or Fever Radiology Results: ITS Impressions Chest X-Ray 01/10/25 13:59 Impression: COPD. Abdomen/Pelvis CT 01/10/25 15:46 IMPRESSION: 1. No evidence of appendicitis, diverticulitis or intestinal obstruction. 2. No definite active bleeding seen in the small or large bowel. 3. Bilateral hydronephrotic changes with no definite stones seen in the ureters. 4. Slightly thickened wall of the urinary bladder suggestive of cystitis with diverticulum seen in the left side. Further evaluation advised. 5. Constipation. Labs Labs: Laboratory Results - last 24 hr 01/10/25 01/12/25 01/12/25 11:54 14:47 20:40 Hgb 7.7 L 6.8 L* Hct 24.4 L 21.2 L Sodium Potassium Chloride Carbon Dioxide Anion Gap BUN Creatinine Estim Creat Clear Calc Estimated GFR Glucose Calcium Total Bilirubin AST ALT Alkaline Phosphatase Total Protein Albumin Blood Type A Positive Antibody Screen Negative Crossmatch See Detail 01/13/25 04:39 Hgb 9.4 L Hct 29.5 L Sodium 136 L Potassium 3.9 Chloride 99 Carbon Dioxide 29 Anion Gap 8 BUN 15 D Creatinine 1.01 H Estim Creat Clear Calc 33 Estimated GFR 53 L Glucose 100 Calcium 9.4 Total Bilirubin 1.2 AST 31 ALT 15 Alkaline Phosphatase 65 Total Protein 6.8 Albumin 3.2 L Blood Type Antibody Screen Crossmatch
[2025-01-13 10:52] LABS: Hematocrit 28.0 % (37.0-47.0); Hemoglobin 9.0 g/dL (12.0-15.0)
[2025-01-13 15:47] LABS: Hematocrit 27.8 % (37.0-47.0); Hemoglobin 9.0 g/dL (12.0-15.0); Immature Granulocyte Percent A 0.4 % (0-0.5); Lymphocytes Absolute Auto 2.12 K/mm3 (0.9-3.2); Mean Corpuscular HGB Conc 32.4 g/dl (32-36); Mean Corpuscular Hemoglobin 29.5 pg (26-34); Mean Corpuscular Volume 91.1 fl (80-100); Nucleated Red Blood Cells Absolute Auto 0.000 K/mm3 (0.0-0.012); Nucleated Red Blood Cells Perc 0.0 % (0.0-0.2); Platelet Count Result 287 k/mm3 (150-375); Red Blood Count 3.05 M/mm3 (4.2-5.4); White Blood Count 9.0 K/mm3 (4.5-10.0)
--- NOTE | 2025-01-13 15:52 | P.DS_ITS ---
DS: Admitting Diagnosis Discharge Date 01/13/2025 Admitting Diagnosis GI bleed DS: Discharge Diagnosis Discharge Diagnosis (1) GI bleed: Qualifiers: GI bleed type/associated pathology: anorectal hemorrhage Qualified Code(s): K62.5 - Hemorrhage of anus and rectum Code(s): K92.2 - Gastrointestinal hemorrhage, unspecified Status: Acute (2) Hypokalemia: Code(s): E87.6 - Hypokalemia Status: Acute (3) Leukocytosis: Code(s): D72.829 - Elevated white blood cell count, unspecified Status: Acute DS: Summary Hospital Course Reason for hospitalization: Rectal bleeding Hospital Course: 74-year-old female with a limited PMHx: she reports taking no daily medications at this time. Presented to the emergency room with complaints of blood in her stool which he 1st noticed last night around midnight. The patient reports that her blood was bright red in color, no pain associated with it, no nausea or vomiting as well. She is unsure of her last colonoscopy but did report she remained recalled having polyps removed, but she has never had a diagnosis of hemorrhoids in the past. ED Work-up reveals: Stable vitals b/p: 147/68, SpO2 98%, p: rate 86, RR: 16, hgb 10.2 upon arrival, recheck reveals 9.2, mild hyponatremia at 134, hypokalemia 3.3, patient A&O x3 spouse is by the bedside, patient it agrees to be admitted for ongoing monitoring of GI bleed consultation to GI. Colonoscopy was performed on 01/12 which showed some polyps and diverticulosis without evidence of perforation or abscess. Discussed this case with GI again and they agreed with discharge on 01/13. Patient did have 1 episode of bloody diarrhea yesterday on 01/12 but on 01/13 patient did not exhibit any signs of weakness, dizziness and did not complain of any episodes of bloody diarrhea. H&Hs were obtained throughout hospitalization and remained stable upon discharge. Plan to discharge home with appropriate follow up with her PCP and GI doctor. Pt amenable to this plan and wishes to be discharged. Status at Discharge Functional status at discharge: independent ambulation Overall status at discharge: patient is back to baseline Time Spent with Patient Time attestation: Total time spent providing and/or coordinating discharge services: 41 Exam Narrative: GENERAL: Comfortable, no acute distress, cachectic HENMT: moist mucous membranes RESPIRATORY: clear to auscultation, no increased respiratory effort CARDIO: Regular rate and rhythm GI: soft, nontender, bowel sounds present SKIN/EXTREMITIES: no rashes, no edema, no redness or tenderness NEURO: answers questions appropriately, A&O x4 DS: Data Data Completed and Pending Completed studies during hospitalization: Pending at discharge 01/12/25 13:49 Surgical [PTH] Routine Labs on day of discharge: Labs from last 24 hours 01/13/25 01/13/25 01/13/25 15:38 10:39 04:39 WBC 9.0 RBC 3.05 L Hgb 9.0 L 9.0 L 9.4 L Hct 27.8 L 28.0 L 29.5 L MCV 91.1 MCH 29.5 MCHC 32.4 RDW 18.6 H Plt Count 287 MPV 9.3 Immature Gran % (Auto) 0.4 Neut % (Auto) 57.5 Lymph % (Auto) 23.6 [place] % (Auto) 14.5 H Eos % (Auto) 2.9 Baso % (Auto) 1.1 Lymph # (Auto) 2.12 [place] # (Auto) 1.3 H Eos # (Auto) 0.3 Baso # (Auto) 0.1 Abs Immat Gran (auto) 0.04 H Absolute Neuts (auto) 5.2 Absolute Nucleated RBC 0.000 Nucleated RBC % 0.0 Sodium Pending 136 L Potassium Pending 3.9 Chloride Pending 99 Carbon Dioxide Pending 29 Anion Gap Pending 8 BUN Pending 15 D Creatinine Pending 1.01 H Estim Creat Clear Calc Pending 33 Estimated GFR Pending 53 L Glucose Pending 100 Calcium Pending 9.4 Total Bilirubin Pending 1.2 AST Pending 31 ALT Pending 15 Alkaline Phosphatase Pending 65 Total Protein Pending 6.8 Albumin Pending 3.2 L Blood Type Antibody Screen Crossmatch 01/12/25 01/10/25 20:40 11:54 WBC RBC Hgb 6.8 L* Hct 21.2 L MCV MCH MCHC RDW Plt Count MPV Immature Gran % (Auto) Neut % (Auto) Lymph % (Auto) [place] % (Auto) Eos % (Auto) Baso % (Auto) Lymph # (Auto) [place] # (Auto) Eos # (Auto) Baso # (Auto) Abs Immat Gran (auto) Absolute Neuts (auto) Absolute Nucleated RBC Nucleated RBC % Sodium Potassium Chloride Carbon Dioxide Anion Gap BUN Creatinine Estim Creat Clear Calc Estimated GFR Glucose Calcium Total Bilirubin AST ALT Alkaline Phosphatase Total Protein Albumin Blood Type A Positive Antibody Screen Negative Crossmatch See Detail Discharge Plan Discharge Attending physician on discharge: Meet Saeed Consulting providers: Michael Chand; Michael Bull Discharging Clinician: Michael Chand Anticipated Discharge Date/Time: 01/13/25 14:44 Patient Disposition: Home Activity: no straining and as tolerated Diet: heart healthy Discharge Instructions: Discharge disposition: Home, stable Take medications as prescribed Monitor blood pressures Take caution while standing, rising, or moving Change positions slowly taking a break between each position change If you standing feel dizzy sit back down and take a break Encouraged to continue with yearly vaccinations Return to the emergency department if he developed sudden shortness of breath, chest pain, nausea, vomiting, upset stomach or intractable diarrhea Return to the emergency department if you develop fever greater than 101.5 Follow-up with the primary care physician within 1-2 weeks Thank you for [facility] for your healthcare needs Patient Instructions: Antibiotic Form Patient Language: Surinamese Stand Alone Forms: General Discharge Information Follow-up/Referrals: Michael Bull MD [Physician] - Ashutosh Banuelos DO [Primary Care Provider] - Discharge Medications: Continued losartan 100 mg tablet 100 mg PO DAILY Qty: 90 2RF Rx Instructions: take 1 tablet by mouth every day hydrochlorothiazide 25 mg tablet See Rx Instructions .ROUTE .COMPLEX Qty: 90 3RF Dose Instruction: TAKE 1 TABLET BY MOUTH DAILY Rx Instructions: TAKE 1 TABLET BY MOUTH DAILY Discontinued losartan 100 mg tablet See Rx Instructions .ROUTE .COMPLEX Qty: 90 2RF Dose Instruction: TAKE 1 TABLET BY MOUTH DAILY Rx Instructions: TAKE 1 TABLET BY MOUTH DAILY Date of admission: 01/10/25 13:22 Primary Care Provider: Ashutosh Banuelos Admitting Provider: Alejandro White Attending physician on admission: Alejandro White Condition: Stable
[2025-01-13 16:17] LABS: Alanine Aminotransferase 14 U/L (6-35); Albumin Level 3.0 g/dL (3.5-5.1); Alkaline Phosphatase 66 U/L (38-126); Anion Gap 6 mmol/L (4-12); Aspartate Amino Transferase 30 U/L (14-36); Bilirubin,Total 0.5 mg/dL (0.2-1.3); Blood Urea Nitrogen 16 mg/dL (7-17); Calcium 8.8 mg/dL (8.4-10.2); Carbon Dioxide 27 mmol/L (22-30); Chloride 101 mmol/L (98-107); Estimated CRCL calculation 33 ml/min; Estimated Glomerular Filt Rate 55; Glucose 127 mg/dL (65-110); Potassium 3.6 mmol/L (3.4-5.0); Sodium 134 mmol/L (137-145); Total Protein 6.2 g/dL (6.3-8.2)
== END 2025-01-13 16:59 | disposition home or self-care (01) | DRG 393 ==
LOC: ANHED 13:17 → ANH3MEDSUR 14:09
PROVIDERS: Emergency Medicine; General Practice; Internal Medicine Critical Care Medicine; Internal Medicine Gastroenterology; Nurse Practitioner; Admitting Provider Internal Medicine; Emergency Provider Emergency Medicine; PCP Internal Medicine; Visit Provider Physician Assistant
PROC: 0DJD8ZZ Inspection of Lower Intestinal Tract, Via Natural or Artificial Opening Endoscopic (ICD-10-PCS; CPT 45378; principal; 2025-01-12 15:15)
DX: D12.3 Benign neoplasm of transverse colon (principal); K57.31 Diverticulosis of large intestine without perforation or abscess with bleeding; K92.1 Melena; D62 Acute posthemorrhagic anemia; E87.1 Hypo-osmolality and hyponatremia; E87.6 Hypokalemia; K59.04 Chronic idiopathic constipation; E55.9 Vitamin D deficiency, unspecified; I10 Essential (primary) hypertension; Z86.0100 Personal history of colon polyps, unspecified
CPT/HCPCS: 36415; 36430; 71045; 74178; 80053; 85014; 85018; 85025; 85610; 85730; 86850; 86900; 86901; 86923; 88305; 93005; 97161; 99285; A9270; J2003; J2371; J2704; J7030; J7050; J7120; P9016; Q9967

== ENCOUNTER 2025-04-30 09:28 | Outpatient (CLI) | payer MEDICARE, SELFPAY ==
--- NOTE | ~2025-04-30 | CT_ITS ---
EXAMINATION:CT diagnostic chest w con DATE: 04/30/2025 09:55 INDICATION: Solitary pulmonary nodule. TECHNIQUE: Computed tomography (CT) of the chest was performed with 75 mL Omnipaque 350 intravenous contrast. Automated exposure control and iterative reconstruction technique were employed. The dose-length product (DLP) was 151.26 mGy-cm. COMPARISON: CT abdomen and pelvis 01/10/2025 FINDINGS: There is severe emphysema. There is a 6 mm nodule in right lower lobe. No pleural effusion. There is right atrial enlargement of the heart. There are coronary artery calcifications. No pericardial effusion. There is a 6 mm cyst in left kidney. There is mild thoracic spondylosis. IMPRESSION: 1. 6 mm nodule in right lung lower lobe, stable from 01/10/2025, probably benign. Consider noncontrast chest CT in 6 months. 2. Severe emphysema. Reviewed, dictated and finalized at location E. IMPRESSION: 1. 6 mm nodule in right lung lower lobe, stable from 01/10/2025, probably benign . Consider noncontrast chest CT in 6 months. 2. Severe emphysema.
== END 2025-04-30 09:29 | disposition home or self-care (01) ==
PROVIDERS: PCP Internal Medicine; Visit Provider Clinical Nurse Specialist
DX: R91.1 Solitary pulmonary nodule (principal); J43.9 Emphysema, unspecified
CPT/HCPCS: 71260; Q9967